=== PATIENT | female | born 1950 | race Two or more races ===

== ENCOUNTER → 2016-08-09 | Outpatient (REF) | payer MEDICARE, OTHER | LOC: M SFHCWAGY 13:47 | PROVIDERS: ATTEND Nurse Practitioner Family | DX: Z01.419 Encounter for gynecological examination (general) (routine) without abnormal findings (principal); N95.2 Postmenopausal atrophic vaginitis; Z12.12 Encounter for screening for malignant neoplasm of rectum | CPT/HCPCS: 82270; G0101; G0123 ==